=== PATIENT | male | born 1935 | race Caucasian/White ===

== ENCOUNTER 2020-06-01 03:17 | Emergency (ER) | payer OTHER ==
--- NOTE | 2020-06-01 03:34 | PDOC ---
History of Present Illness - General Chief Complaint: Injury Stated Complaint: FALL, NASAL BLEEDING Time Seen by Provider: 06/01/20 03:24 History Source: Patient Exam Limitations: No Limitations - History of Present Illness Initial Comments: 06/01/20 03:29 This is an 84-year-old male who was accompanying the patient into the ED when he tripped and fell. Patient hit his face has an abrasion on his nose with a bloody nose and abrasions on his left elbow and left knee. Patient is unable to recall when his last tetanus shot was. Patient denies loss of consciousness. Allergies: as per nursing notes Past Medical History: none Social history: Lives with family. No smoking. No alcohol. No illicit drugs. Surgical history: None General: No fevers or chills, no weakness, no weight loss HEENT: No change in vision. No sore throat,. No ear pain CardioVascular: no chest discomfort. No shortness of breath Respiratory:No cough, or wheezing. Gastrointestinal: no nausea, vomiting, diarrhea or constipation, No rectal bleeding Genitourinary: No dysuria, hematuria, or frequency Musculoskeletal: No joint or muscle pain or swelling Neurologic: No headache, vertigo, dizziness or loss of consciousness Psychiatric: nor depression Skin: No rashes or easy bruising Endocrine: no increased thirst or abnormal weight change Allergic: no skin or latex allergy All other systems reviewed and normal GENERAL: The patient is awake, alert, and fully oriented, in no acute distress. HEENT:Head there is an abrasion over the anterior bridge of the nose and some small amount of bleeding from the left nare. There is tenderness on palpation of the area. Cervical spine there is no tenderness on palpation diffusely Eyes: Pupils equal, round and reactive to light, Ears, and Throat are normal. Neck is supple. No Lymphadenopathy. EXTREMITIES:atraumatic, Normal range of motion, no edema. Left elbow there is a small abrasion to the left elbow there is no bony tenderness on palpation. Left knee there is a small abrasion to the left knee with no bony tenderness on palpation. Neurovascular is intact NEUROLOGICAL: Normal speech, normal gait. PSYCH: Normal mood, normal affect. SKIN: Warm, Dry, normal turgor, no rashes or lesions noted. Assessment and plan: This is an 84-year-old male with a nosebleed and multiple abrasions post fall while coming into the ED. Patient has a head and facial bone and neck CT scheduled closed the abrasions with Dermabond and patient tolerated well 06/01/20 06:07 CAT scans were negative for any apparent acute pathology with the exception of t he facial bones which shows a nasal bridge fracture patient discharged well follow-up with primary care doctor Past History - Medical History Allergies/Adverse Reactions: Allergies Allergy/AdvReac Type Severity Reaction Status Date / Time No Known Allergies Allergy Verified 06/01/20 03:50 Discharge - Discharge Information Problems reviewed: Yes Clinical Impression/Diagnosis: Abrasion, multiple sites, Nasal bone fracture Condition: Stable Disposition: HOME - Admission No - Follow up/Referral - Patient Discharge Instructions Additional Instructions: For the pain take Tylenol 1000 mg as often this 3-4 times a day if needed. Someone to check on you once tonight during the night. You should be arousable to their normal level of arousability for that time of the night. If you have been vomiting, had a seizure, or you are unable to be aroused or there is a change in your mental status call 911 go back to the nearest emergency department. Take Tylenol as needed for pain. Return to the emergency department immediately with ANY new, persistent or worsening symptoms. Continue any medications as previously prescribed by your physician. You should follow up with your primary doctor as soon as possible regarding today's emergency department visit. . Please make sure your doctor reviews the results of your emergency evaluation. Thank you for coming to the Emergency Department today for your care. It was a pleasure to see you today. Please note that your evaluation is INCOMPLETE until you follow-up with your doctor. - Post Discharge Activity
[2020-06-01 03:43] VITALS: BMI 19.2
[2020-06-01] MEDS ORDERED: DIPHTH,PERTUSS(ACELL),TET 0.5 ML DISP.SYRIN IM ONE (03:50)
[2020-06-01 06:20] VITALS: BP 144/86; PULSE 78
== END 2020-06-01 06:19 | disposition home or self-care (01) ==
LOC: FER 03:17
PROC: 3E0234Z Introduction of Serum, Toxoid and Vaccine into Muscle, Percutaneous Approach (ICD-10-PCS; principal; 2020-06-01)
DX: S02.2XXA Fracture of nasal bones, initial encounter for closed fracture (principal)
CPT/HCPCS: 70450-TC; 70486-TC; 72125-TC; 99284-25

== ENCOUNTER 2020-06-01 13:30 | Emergency (ER) | payer OTHER ==
[2020-06-01 13:41] VITALS: BP 152/94; PULSE 86; TEMP 98.2; BMI 19.2
--- NOTE | 2020-06-01 13:57 | PDOC ---
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 The patient was here as a family member guest last night when he tripped on the ramp leading to the ambulance bay and fell onto his face, causing a nasal abrasion with nondepressed nasal bone fracture. He had head, facial bones, and C spine CT at that time and these were read by [facility]hawks as no c/f ICH. [facility] Radiology read these this morning as possible small acute right frontal lobe bleed versus chronic calcification. The patient was called and he returns with no new symptoms, all nasal bleeding has stopped, no issues speaking/swallowing/walking, no balance issues, no numbness, tingling, or focal weakness, no vision difficulties, and no headache. Past History - Medical History Allergies/Adverse Reactions: Allergies Allergy/AdvReac Type Severity Reaction Status Date / Time No Known Allergies Allergy Verified 06/01/20 03:50 Home Medications: Ambulatory Orders Apixaban [Eliquis] 2.5 mg PO BID 06/01/20 Metoprolol Succinate [Toprol Xl] 25 mg PO DAILY 06/01/20 Nitroglycerin [Nitrostat] 0.4 mg SL ASDIR PRN 06/01/20 Rosuvastatin [Crestor -] 20 mg PO DAILY 06/01/20 COPD: No - Immunization History TDAP Vaccination: Yes (06/01/2020) Immunization Up to Date: No - Psycho-Social/Smoking History Smoking History: Never smoked Have you smoked in the past 12 months: No - Substance Abuse Hx (Audit-C & DAST Scrn) How often the patient has a drink containing alcohol: Never Score: In Men: 4 or > Positive; In Women: 3 or > Positive: 0 Screen Result (Pos requires Nsg. Audit-10AR): Negative In the last yr the pt used illegal drug/Rx for NonMed reason: No Score: Yes response is considered Positive: 0 Screen Result (Positive result requires Nsg. DAST-10): Negative Review of Systems - Review of Systems Able to Perform ROS?: Yes Comments:: 06/01/20 14:12 GEN: no fever, chills, generalized weakness, or malaise HEENT: nosebleed (resolved), nasal bridge swelling, no ear pain, eye pain, throat pain or swelling, vision change, or loose teeth SKIN: abrasions, or bruises CV: no chest pain, palpitations, or LOC RESP: no cough or SOB GI: no abdominal pain, nausea, vomiting, or black/bloody stool : no hematuria or flank pain/bruising MSK: no muscle weakness, muscle pain, joint pain, or joint swelling NECK/BACK: no neck pain, back pain, or trauma reported NEURO: no headache, seizure, numbness, tingling, focal weakness, or incontinence PSYCH: no suicidality, homicidality, or substance use *Physical Exam - Vital Signs Last Vital Signs Temp Pulse Resp BP Pulse Ox 98.2 F 86 16 152/94 99 06/01/20 13:37 06/01/20 13:37 06/01/20 13:37 06/01/20 13:37 06/01/20 13:37 - Physical Exam 06/01/20 14:13 GENERAL: well-appearing, thin, at bedside, A/Ox4, no distress, answers questions appropriately, nasal abrasions and swelling without obvious bony or cartilaginous deformity HEENT: PERRLA, EOMI, moist mucous membranes NECK/BACK: no midline ttp, no spinal step-off or deformity, no hematoma, full ROM, neck supple CHEST WALL: no ecchymoses, contusion, or abrasions, no costal stepoff or deformity, old sternal wires noted with little overlying soft tissue with skin tenting but no breaks in the skin CARDIOVASCULAR: regular rate/rhythm, no MGR, strong peripheral pulses, capillary refill <2 seconds, extremities wwp, no edema LUNGS/RESPIRATORY: no respiratory distress, CTAB GI/ABDOMEN: symmetric [id number], normoactive BS, soft, no ttp, no midline pulsatile masses : no CVA tenderness MSK/EXTREMITIES: left knee abrasion, left elbow ecchymosis, no muscle atrophy, no acute deformity SKIN: warm and dry, no pallor, no jaundice, no rash, no pathologic-appearing bruising, no skin breakdown, no cuts, no lesions NEUROLOGICAL: GCS 15, CN II-XII grossly intact, 5/5 strength proximally and distally, no facial droop ED Treatment Course - RADIOLOGY Radiology Studies Ordered: Category Date Time Status HEAD CT WITHOUT CONTRAST [CT] Stat CT Scan 06/01/20 13:48 Ordered Medical Decision Making - Medical Decision Making 84YOM returns after radiology read an abnormal finding on his trauma HCT early this morning and called him to come back to the ED. Initial Vital Signs Temp Pulse Resp BP Pulse Ox 98.2 F 86 16 152/94 99 06/01/20 13:37 06/01/20 13:37 06/01/20 13:37 06/01/20 13:37 06/01/20 13:37 He is very well appearing, states does not want to be here, states minimal pain, no neuro focal deficits, no JOHNSON at all. Most likely this abnormal HCT finding is chronic calcification or other chronic change to HCT, and not an ICH. Will repeat HCT to ensure this hyperattenuated area is not expanding in size. CT/HEAD CT WITHOUT CONTRAST Status post fall. Follow-up CT scan of the head without intravenous contrast Since prior scan of the head done earlier on the same date, previously described focal hyperdensity in the right frontal lobe, anteriorly is again seen without interval change in size or appearance again measuring approximately 80 Hounsfield units. There remains moderate atrophy and moderate to marked periventricular chronic microvascular ischemic disease changes. No extra-axial collection is seen. The calvarium is intact IMPRESSION: Stable small focal hyperdensity in the right frontal lobe, anteriorly likely representing a calcific density. The possibility of a tiny hematoma is less likely but cannot be entirely excluded. Correlate clinically to determine further evaluation and follow-up. The patient remains well appearing. No change on the HCT from early this morning. He wants to go home, states he would not follow up with neurology or neurosurgery if we gave him referral info because he does not like doctors offices or hospitals and is tired of all the medical visits. Return precautions are discussed and he is appropriate for DC home with close OP follow-up. Discharge - Discharge Information Problems reviewed: Yes Clinical Impression/Diagnosis: Abnormal head CT Condition: Stable Disposition: HOME - Admission No - Follow up/Referral Referrals: Asif Funez MD [Primary Care Provider] - Italo Skinner MD [Staff Physician] - - Patient Discharge Instructions Additional Instructions: You were seen in the ER after receiving a call about your abnormal head CT result from overnight. We repeated the head CT and we see that there is no difference in the size of the area in question in the right frontal lobe. This means that it is not likely to be any significant bleed within the brain, and is likely a chronic calcified area (we don't know what this might be from). Please follow up with Dr. Funez on Thursday. Follow up with a neurologist for further evaluation of this lesion in the right frontal lobe. We are giving you referral information for our neurologist environmental specialist. Come back to the ER for any new or worsening symptoms. Especially come back right away if you have new numbness, tingling, paralysis or weakness of one side or part of your body, new vision changes, difficulty speaking or swallowing, headache, or other issues. For the next 12 hours, be sure to have someone watch you closely to make sure you are improving. - Post Discharge Activity
== END 2020-06-01 14:57 | disposition home or self-care (01) ==
LOC: FER 13:30 → SUPCPDRO 13:30 → FER 14:57
PROC: 3E0234Z Introduction of Serum, Toxoid and Vaccine into Muscle, Percutaneous Approach (ICD-10-PCS; principal; 2020-06-01)
DX: R93.0 Abnormal findings on diagnostic imaging of skull and head, not elsewhere classified (principal)
CPT/HCPCS: 70450-TC; 99283-25

== ENCOUNTER 2021-11-14 12:45 | Inpatient (IN) | payer OTHER ==
[2021-11-14] MEDS ORDERED: SODIUM CHLORIDE 0.9% 500 ML INFUS.BAG IV ONE (13:25)
[2021-11-14] MEDS ORDERED: dilTIAZem HCL 50 MG/10 ML - 10 ML VIAL IVPUSH ONE ×2 (13:26→14:40)
[2021-11-14] MEDS ORDERED: dilTIAZem HCL 50 MG/10 ML - 10 ML VIAL ONE (13:30)
[2021-11-14] MEDS ORDERED: dilTIAZem HCL 50 MG/10 ML - 10 ML VIAL IVPUSH PRN (13:49)
[2021-11-14] MEDS ORDERED: dilTIAZem HCL 30 MG TABLET PO ONE (14:05)
[2021-11-14 14:06] LABS: INR 1.52 (0.83-1.09); PROTHROMBIN TIME (PATIENT) 17.6 SEC (9.7-13.0)
[2021-11-14] MEDS ORDERED: dilTIAZem HCL 30 MG TABLET ONE (14:06)
[2021-11-14 14:09] LABS: ACTIVATED PTT 31.3 SECONDS (25.2-36.5)
[2021-11-14 14:10] LABS: ALBUMIN 3.5 g/dl (3.4-5.0); BILIRUBIN,TOTAL 0.6 mg/dl (0.2-1); CALCIUM 9.5 mg/dl (8.5-10); CREATININE 1.8 mg/dl (0.55-1.3)
[2021-11-14 15:13] LABS: BASO % 0.6 % (0-2.0); HEMATOCRIT 38.6 % (35.4-49); HEMOGLOBIN 12.6 GM/dL (11.7-16.9); LYMPH % 15.6 % (8-40); MCH 27.9 pg (25.7-33.7); MCHC 32.7 g/dl (32.0-35.9); MEAN CELL VOLUME 85.2 fl (80-96); MEAN PLT VOLUME 9.7 fl (7.5-11.1); MONO % 8.3 % (3.8-10.2); NEUT % 74.5 % (42.8-82.8); PLATELET COUNT 342 10^3/uL (134-434); RBC 4.53 M/mm3 (4.00-5.60); RDW 13.7 % (11.9-15.9); WHITE BLOOD COUNT 6.3 K/mm3 (4.0-10.0)
[2021-11-14] MEDS: dilTIAZem HCL 30 MG TABLET PO SCH ×2 (18:09→23:40)
[2021-11-14] MEDS ORDERED: CEFTRIAXONE 1 GM in DEXTROSE 5%-WATER - 50 ML IVPB ONE (20:48)
[2021-11-14] MEDS ORDERED: DEXTROSE 5%-WATER - 50 ML IVPB ONE (21:30)
[2021-11-14] MEDS ORDERED: cefTRIAXone SODIUM 1 GM VIAL ONE (21:30)
[2021-11-14] MEDS: APIXABAN 2.5 MG TABLET PO SCH (21:57)
[2021-11-14] MEDS ORDERED: MELATONIN 5 MG TABLETS PO PRN (23:10)
[2021-11-15] MEDS ORDERED: dilTIAZem HCL 50 MG/10 ML - 10 ML VIAL IVPUSH PRN (05:01)
[2021-11-15] MEDS: dilTIAZem HCL 30 MG TABLET PO SCH ×2 (06:31→12:54)
[2021-11-15] MEDS ORDERED: DEXTROSE 5%-WATER - 50 ML IVPB ONE (09:11)
[2021-11-15] MEDS ORDERED: cefTRIAXone SODIUM 1 GM VIAL ONE (09:11)
[2021-11-15] MEDS: APIXABAN 2.5 MG TABLET PO SCH ×2 (09:21→21:42)
[2021-11-15] MEDS: CEFTRIAXONE 1 GM in DEXTROSE 5%-WATER - 50 ML IVPB SCH (09:21)
[2021-11-15 10:20] LABS: ALBUMIN 3.2 g/dl (3.4-5.0); BILIRUBIN,TOTAL 0.6 mg/dl (0.2-1); CALCIUM 9.1 mg/dl (8.5-10); CREATININE 1.7 mg/dl (0.55-1.3); MAGNESIUM 1.9 mg/dL (1.8-2.4); TOT PROT 6.6 g/dl (6.4-8.2)
[2021-11-15] MEDS ORDERED: DIGOXIN 0.5 MG/2 ML AMPUL IVPUSH ONE ×2 (11:45→19:00)
[2021-11-15 12:43] LABS: BASO % 0.8 % (0-2.0); EOS % 1.4 % (0-4.5); HEMOGLOBIN 13.1 GM/dL (11.7-16.9); LYMPH % 14.6 % (8-40); MCH 27.4 pg (25.7-33.7); MCHC 31.8 g/dl (32.0-35.9); MEAN CELL VOLUME 86.1 fl (80-96); MEAN PLT VOLUME 9.6 fl (7.5-11.1); MONO % 8.8 % (3.8-10.2); NEUT % 74.4 % (42.8-82.8); PLATELET COUNT 336 10^3/uL (134-434); RBC 4.76 M/mm3 (4.00-5.60); RDW 13.6 % (11.9-15.9); WHITE BLOOD COUNT 5.9 K/mm3 (4.0-10.0)
[2021-11-15] MEDS ORDERED: FUROSEMIDE 40 MG/4 ML INJECTABLE VIAL IVPUSH ONE (13:53)
[2021-11-15] MEDS: MUPIROCIN 2% TOPICAL OINTMENT FOR DECOLONIZATION NS SCH (21:42)
[2021-11-15] MEDS: CHLORHEXIDINE GLUCONATE 4% CLEANSER FOR DECOLONIZATION TP SCH (21:42)
[2021-11-16] MEDS: METOPROLOL TARTRATE 25 MG TABLET (FP) PO PRN ×3 (01:20→05:16)
[2021-11-16] MEDS: DEXAMETHASONE 4 MG TABLET (FP) PO SCH ×2 (02:05→10:15)
[2021-11-16] MEDS ORDERED: FUROSEMIDE 40 MG/4 ML INJECTABLE VIAL IVPUSH SCH (06:00)
[2021-11-16 07:17] LABS: HEMATOCRIT 46.4 % (35.4-49); MCH 27.7 pg (25.7-33.7); MCHC 32.4 g/dl (32.0-35.9); MEAN CELL VOLUME 85.6 fl (80-96); MEAN PLT VOLUME 9.7 fl (7.5-11.1); PLATELET COUNT 409 10^3/uL (134-434); RBC 5.41 M/mm3 (4.00-5.60); RDW 13.5 % (11.9-15.9); WHITE BLOOD COUNT 7.2 K/mm3 (4.0-10.0)
[2021-11-16 07:46] LABS: PHOSPHOROUS 4.2 mg/dL (2.5-4.9)
[2021-11-16 08:25] LABS: CALCIUM 9.6 mg/dL (8.5-10.1); CHLORIDE 102 mmol/L (98-107); CO2 27 mmol/L (21-32); CREATININE 1.7 mg/dL (0.55-1.3); GLUCOSE,RANDOM 133 mg/dL (74-106); MAGNESIUM 2.1 mg/dL (1.8-2.4); SODIUM 137 mmol/L (136-145)
[2021-11-16] MEDS ORDERED: AMIODARONE IN DEXTROSE,ISO-OSM 360 MG/200 ML BAG IVPB ONE (09:17)
[2021-11-16] MEDS ORDERED: cefTRIAXone SODIUM 1 GM VIAL ONE (10:10)
[2021-11-16] MEDS ORDERED: DEXTROSE 5%-WATER - 50 ML IVPB ONE (10:10)
[2021-11-16] MEDS: CEFTRIAXONE 1 GM in DEXTROSE 5%-WATER - 50 ML IVPB SCH (10:14)
[2021-11-16] MEDS: APIXABAN 2.5 MG TABLET PO SCH ×2 (10:15→21:25)
[2021-11-16] MEDS: AMIODARONE IN DEXTROSE,ISO-OSM 360 MG/200 ML BAG IVPB SCH ×2 (10:15→19:48)
[2021-11-16] MEDS: MUPIROCIN 2% TOPICAL OINTMENT FOR DECOLONIZATION NS SCH ×2 (11:00→21:25)
[2021-11-16] MEDS ORDERED: REMDESIVIR 200 MG in SODIUM CHLORIDE 250 ML IVPB ONE (15:00)
[2021-11-16 16:07] LABS: SARS-CoV-2 NAA Not Detected (Not Detected)
[2021-11-16] MEDS: FUROSEMIDE 40 MG TABLET (FP) PO SCH (16:43)
[2021-11-16] MEDS: CHLORHEXIDINE GLUCONATE 4% CLEANSER FOR DECOLONIZATION TP SCH (21:25)
[2021-11-17] MEDS: FUROSEMIDE 40 MG TABLET (FP) PO SCH ×2 (05:38→15:20)
[2021-11-17] MEDS: AMIODARONE IN DEXTROSE,ISO-OSM 360 MG/200 ML BAG IVPB SCH ×2 (05:39→09:05)
[2021-11-17 07:13] LABS: HEMATOCRIT 40.5 % (35.4-49); HEMOGLOBIN 12.2 GM/dL (11.7-16.9); MCH 27.3 pg (25.7-33.7); MCHC 30.1 g/dl (32.0-35.9); MEAN CELL VOLUME 90.7 fl (80-96); MEAN PLT VOLUME 9.9 fl (7.5-11.1); PLATELET COUNT 312 10^3/uL (134-434); RBC 4.47 M/mm3 (4.00-5.60); RDW 13.5 % (11.9-15.9); WHITE BLOOD COUNT 7.6 K/mm3 (4.0-10.0)
[2021-11-17 07:58] LABS: CHLORIDE 85 mmol/L (98-107); SODIUM 125 mmol/L (136-145)
[2021-11-17 08:00] LABS: ANION GAP 18 MMOL/L (8-16); BLOOD UREA NITROGEN 40.5 mg/dL (7-18); CO2 21 mmol/L (21-32); MAGNESIUM 1.7 mg/dL (1.8-2.4)
[2021-11-17 08:04] LABS: CREATININE 1.8 mg/dL (0.55-1.3)
[2021-11-17] MEDS ORDERED: MAGNESIUM 2GM/50ML STERILE WATER IVPB IVPB ONE (08:04)
[2021-11-17 08:05] LABS: PHOSPHOROUS 3.8 mg/dL (2.5-4.9)
[2021-11-17 08:11] LABS: GLUCOSE,RANDOM 736 mg/dL (74-106)
[2021-11-17] MEDS ORDERED: cefTRIAXone SODIUM 1 GM VIAL ONE (10:57)
[2021-11-17] MEDS ORDERED: DEXTROSE 5%-WATER - 50 ML IVPB ONE (10:57)
[2021-11-17] MEDS: MUPIROCIN 2% TOPICAL OINTMENT FOR DECOLONIZATION NS SCH ×2 (10:59→21:31)
[2021-11-17] MEDS: DEXAMETHASONE 4 MG TABLET (FP) PO SCH (11:00)
[2021-11-17] MEDS: APIXABAN 2.5 MG TABLET PO SCH ×2 (11:00→21:31)
[2021-11-17] MEDS: CEFTRIAXONE 1 GM in DEXTROSE 5%-WATER - 50 ML IVPB SCH (11:00)
[2021-11-17] MEDS: REMDESIVIR 100 MG in SODIUM CHLORIDE 270 ML IVPB SCH (15:20)
[2021-11-17] MEDS: CHLORHEXIDINE GLUCONATE 4% CLEANSER FOR DECOLONIZATION TP SCH (21:31)
[2021-11-18] MEDS: AMIODARONE IN DEXTROSE,ISO-OSM 360 MG/200 ML BAG IVPB SCH ×2 (01:12→09:00)
[2021-11-18] MEDS: FUROSEMIDE 40 MG TABLET (FP) PO SCH ×2 (06:21→13:16)
[2021-11-18] MEDS ORDERED: DEXTROSE 5%-WATER - 50 ML IVPB ONE (08:28)
[2021-11-18] MEDS ORDERED: cefTRIAXone SODIUM 1 GM VIAL ONE (08:28)
[2021-11-18] MEDS: CEFTRIAXONE 1 GM in DEXTROSE 5%-WATER - 50 ML IVPB SCH (10:30)
[2021-11-18] MEDS: DEXAMETHASONE 4 MG TABLET (FP) PO SCH (10:34)
[2021-11-18] MEDS: APIXABAN 2.5 MG TABLET PO SCH ×2 (10:34→21:31)
[2021-11-18] MEDS: MUPIROCIN 2% TOPICAL OINTMENT FOR DECOLONIZATION NS SCH (10:35)
[2021-11-18] MEDS: REMDESIVIR 100 MG in SODIUM CHLORIDE 270 ML IVPB SCH (15:05)
[2021-11-18 16:24] LABS: CHLORIDE 93 mmol/L (98-107); MAGNESIUM 2.3 mg/dL (1.8-2.4); SODIUM 130 mmol/L (136-145)
[2021-11-18 16:25] LABS: CALCIUM 9.3 mg/dL (8.5-10.1)
[2021-11-18 16:27] LABS: ALBUMIN 3.3 g/dl (3.4-5.0); ANION GAP 9 MMOL/L (8-16); CO2 28 mmol/L (21-32)
[2021-11-18 16:30] LABS: BILIRUBIN,TOTAL 0.3 mg/dL (0.2-1); CREATININE 2.4 mg/dL (0.55-1.3); SGOT/AST 13 U/L (15-37); SGPT/ALT 24 U/L (13-61); TOT PROT 7.1 g/dl (6.4-8.2)
[2021-11-18 16:32] LABS: ALK PHOS 102 U/L (45-117)
[2021-11-18 16:41] LABS: GLUCOSE,RANDOM 440 mg/dL (74-106)
[2021-11-18] MEDS ORDERED: AMIODARONE IN DEXTROSE,ISO-OSM 360 MG/200 ML BAG IVPB SCH ×2 (17:48→19:00)
[2021-11-18] MEDS ORDERED: MELATONIN 5 MG TABLETS PO PRN (17:48)
[2021-11-18] MEDS: INSULIN SLIDING SCALE (NOVOLOG) 1 VIAL SQ SCH ×2 (18:33→21:32)
[2021-11-18] MEDS: AMIODARONE HCL 200 MG TABLET PO SCH ×2 (20:14→21:27)
[2021-11-18] MEDS ORDERED: MUPIROCIN 2% TOPICAL OINTMENT FOR DECOLONIZATION NS SCH (22:00)
[2021-11-18] MEDS ORDERED: CHLORHEXIDINE GLUCONATE 4% CLEANSER FOR DECOLONIZATION TP SCH (22:00)
[2021-11-18] MEDS ORDERED: INSULIN SLIDING SCALE (NOVOLOG) 1 VIAL SQ SCH (22:00)
[2021-11-19] MEDS: INSULIN SLIDING SCALE (NOVOLOG) 1 VIAL SQ SCH ×4 (06:46→21:39)
[2021-11-19] MEDS: FUROSEMIDE 40 MG TABLET (FP) PO SCH ×2 (06:46→15:27)
[2021-11-19] MEDS ORDERED: DEXTROSE 5%-WATER - 50 ML IVPB ONE (08:35)
[2021-11-19] MEDS ORDERED: cefTRIAXone SODIUM 1 GM VIAL ONE (08:35)
[2021-11-19 08:42] LABS: HEMOGLOBIN 14.7 GM/dL (11.7-16.9); MCH 27.7 pg (25.7-33.7); MCHC 32.6 g/dl (32.0-35.9); MEAN CELL VOLUME 84.9 fl (80-96); MEAN PLT VOLUME 9.2 fl (7.5-11.1); PLATELET COUNT 367 10^3/uL (134-434); RBC 5.31 M/mm3 (4.00-5.60); RDW 13.4 % (11.9-15.9); WHITE BLOOD COUNT 10.3 K/mm3 (4.0-10.0)
[2021-11-19] MEDS: DEXAMETHASONE 4 MG TABLET (FP) PO SCH (09:11)
[2021-11-19] MEDS: CEFTRIAXONE 1 GM in DEXTROSE 5%-WATER - 50 ML IVPB SCH (09:13)
[2021-11-19] MEDS: AMIODARONE HCL 200 MG TABLET PO SCH ×2 (09:13→17:56)
[2021-11-19] MEDS: APIXABAN 2.5 MG TABLET PO SCH ×2 (09:13→21:35)
[2021-11-19 09:33] LABS: ALBUMIN 3.6 g/dl (3.4-5.0); CALCIUM 9.4 mg/dL (8.5-10.1); MAGNESIUM 2.3 mg/dL (1.8-2.4)
[2021-11-19 09:36] LABS: CREATININE 2.1 mg/dL (0.55-1.3); PHOSPHOROUS 5.2 mg/dL (2.5-4.9)
[2021-11-19 09:38] LABS: BILIRUBIN,TOTAL 0.4 mg/dL (0.2-1); TOT PROT 7.5 g/dl (6.4-8.2)
[2021-11-19] MEDS: REMDESIVIR 100 MG in SODIUM CHLORIDE 270 ML IVPB SCH (16:20)
[2021-11-20] MEDS: FUROSEMIDE 40 MG TABLET (FP) PO SCH ×2 (05:55→15:39)
[2021-11-20] MEDS: INSULIN SLIDING SCALE (NOVOLOG) 1 VIAL SQ SCH ×2 (05:59→12:16)
[2021-11-20 09:14] LABS: HEMATOCRIT 43.9 % (35.4-49); HEMOGLOBIN 14.6 GM/dL (11.7-16.9); MCHC 33.3 g/dl (32.0-35.9); MEAN PLT VOLUME 9.1 fl (7.5-11.1); MONO % 7.5 % (3.8-10.2); NEUT % 84.5 % (42.8-82.8); PLATELET COUNT 342 10^3/uL (134-434); RBC 5.23 M/mm3 (4.00-5.60); RDW 13.4 % (11.9-15.9); WHITE BLOOD COUNT 8.4 K/mm3 (4.0-10.0)
[2021-11-20] MEDS ORDERED: cefTRIAXone SODIUM 1 GM VIAL ONE ×2 (09:53→09:55)
[2021-11-20] MEDS ORDERED: DEXTROSE 5%-WATER - 50 ML IVPB ONE ×2 (09:54→09:55)
[2021-11-20] MEDS: CEFTRIAXONE 1 GM in DEXTROSE 5%-WATER - 50 ML IVPB SCH (09:56)
[2021-11-20] MEDS: AMIODARONE HCL 200 MG TABLET PO SCH (09:56)
[2021-11-20] MEDS: APIXABAN 2.5 MG TABLET PO SCH (09:56)
[2021-11-20] MEDS: DEXAMETHASONE 4 MG TABLET (FP) PO SCH (09:56)
[2021-11-20 10:08] LABS: BLOOD UREA NITROGEN 62.5 mg/dL (7-18)
[2021-11-20 10:09] LABS: CALCIUM 9.3 mg/dL (8.5-10.1)
[2021-11-20 10:10] LABS: ALBUMIN 3.4 g/dl (3.4-5.0); MAGNESIUM 2.4 mg/dL (1.8-2.4)
[2021-11-20 10:13] LABS: BILIRUBIN,DIRECT 0.2 mg/dL (0.0-0.2); BILIRUBIN,TOTAL 0.8 mg/dL (0.2-1); CREATININE 2.1 mg/dL (0.55-1.3); TOT PROT 7.1 g/dl (6.4-8.2)
[2021-11-20 13:31] VITALS: BP 100/63; PULSE 116; TEMP 97.7
[2021-11-20 14:49] VITALS: BMI 18.9
[2021-11-20] MEDS: REMDESIVIR 100 MG in SODIUM CHLORIDE 270 ML IVPB SCH (15:39)
== END 2021-11-20 17:44 | disposition home health service (06) | DRG 177 ==
LOC: FER 12:45 → FM/S 16:37 → JICU 11-15 20:06 → J4S 11-18 18:00
PROVIDERS: ADMIT Internal Medicine; ATTEND Nurse Practitioner Acute Care
PROC: XW033E5 Introduction of Remdesivir Anti-infective into Peripheral Vein, Percutaneous Approach, New Technology Group 5 (ICD-10-PCS; principal; 2021-11-16)
DX: U07.1 COVID-19 (principal); I50.23 Acute on chronic systolic (congestive) heart failure; J96.00 Acute respiratory failure, unspecified whether with hypoxia or hypercapnia; J12.82 Pneumonia due to coronavirus disease 2019; N17.9 Acute kidney failure, unspecified; N39.0 Urinary tract infection, site not specified; I42.8 Other cardiomyopathies; I48.92 Unspecified atrial flutter; I47.2 Ventricular tachycardia; I25.10 Atherosclerotic heart disease of native coronary artery without angina pectoris; I25.2 Old myocardial infarction; Z95.1 Presence of aortocoronary bypass graft; I48.91 Unspecified atrial fibrillation; I71.2 Thoracic aortic aneurysm, without rupture
CPT/HCPCS: 36415; 71045-TC-FY; 71250-TC; 80048; 80053; 80061; 80076; 80162; 81003; 81015; 82550; 82553; 82570; 82962; 83036; 83735; 83880; 84100; 84300; 84436; 84443; 84480; 84481; 84484; 85025; 85027; 85379; 85610; 85730; 86140; 87804; 93005; 93306-TC; 97116-GP; 97161-GP; 99285-25; C9399; C9803; U0003; U0005

== ENCOUNTER 2024-02-18 18:34 | Emergency (ER) | payer OTHER ==
[2024-02-18 18:59] VITALS: BP 174/87; PULSE 72; RESP 19; TEMP 98; BMI 17.5
[2024-02-18] MEDS ORDERED: ACETAMINOPHEN 500 MG TABLET (FP) ONE (20:19)
[2024-02-18] MEDS: ACETAMINOPHEN 500 MG TABLET (FP) PO ONE (20:20)
== END 2024-02-18 21:36 | disposition home or self-care (01) ==
LOC: FER 18:34
DX: S00.03XA Contusion of scalp, initial encounter (principal); S00.01XA Abrasion of scalp, initial encounter; W01.198A Fall on same level from slipping, tripping and stumbling with subsequent striking against other object, initial encounter; Y92.000 Kitchen of unspecified non-institutional (private) residence as the place of occurrence of the external cause
CPT/HCPCS: 70450-TC; 71046-TC-FY; 71101-TC-LT-FY; 72125-TC; 73070-TC-RT-FY; 99284-25

== ENCOUNTER 2024-05-12 16:36 | Emergency (ER) | payer OTHER ==
[2024-05-12 16:46] VITALS: BP 132/72; PULSE 80; RESP 18; TEMP 97.5; BMI 18.1
== END 2024-05-12 17:13 | disposition home or self-care (01) ==
LOC: FER 16:36
DX: H61.23 Impacted cerumen, bilateral (principal)
CPT/HCPCS: 99282-25